=== PATIENT | female | born 1995 | race Two or more races ===

== ENCOUNTER 2018-08-25 05:23 | Inpatient (IN) | payer SELFPAY ==
[~2018-08-25] VITALS: Ht 157.5 cm; Wt 91.2 kg
[~2018-08-25 05:23] MED LIST: ACET-704 PO; IBUP-1060 PO; LABE100T5 PO
[2018-08-25] MEDS: IV RINGERS,LACTATED 1000ML 1,000 ML IV SCH ×2 (06:03→09:50)
[2018-08-25 06:15] VITALS: BP 150/80
[2018-08-25] MEDS ORDERED: LIDOCAINE 1% PF 30 ML VIAL. INJ PRN (06:15)
[2018-08-25] MEDS ORDERED: ACETAMINOPHEN 325 MG TABLET. PO PRN ×2 (06:15→13:15)
[2018-08-25] MEDS ORDERED: IV RINGERS,LACTATED 1000ML 1,000 ML IV SCH (06:15)
[2018-08-25] MEDS ORDERED: fentaNYL PF VIAL 100 MCG/2 ML VIAL IV PRN ×3 (06:15)
[2018-08-25] MEDS ORDERED: 0.9 % SODIUM CHLORIDE 10 ML DISP.SYRIN. IV PRN ×2 (06:15→13:15)
[2018-08-25] MEDS ORDERED: ONDANSETRON PF 4 MG/2 ML VIAL. IV PRN (06:15)
[2018-08-25] MEDS ORDERED: IBUPROFEN 400 MG TABLET. PO PRN (06:15)
[2018-08-25] MEDS ORDERED: NALBUPHINE 10 MG/ML AMPUL. IV PRN ×2 (06:15)
[2018-08-25] MEDS ORDERED: BUTORPHANOL 2 MG/ML VIAL. IV PRN ×2 (06:15)
[2018-08-25] MEDS ORDERED: TERBUTALINE 1 MG/ML VIAL. SQ PRN (06:15)
[2018-08-25] MEDS ORDERED: MAG HYDROX/ALUMINUM HYD/SIMETH 30 ML ORAL.SUSP PO PRN ×2 (06:15→13:15)
[2018-08-25] MEDS ORDERED: OXYTOCIN 30 UNIT/500 ML PREMIX 500 ML IV PRN ×3 (06:15→14:00)
[2018-08-25 06:20] LABS: BASO % 1 % (0-3); EOS % 1 % (0-3); HEMATOCRIT 34.4 % (36.0-47.0); HEMOGLOBIN 11.3 g/dL (12.0-15.5); LYMPH % 28 % (24-48); MEAN CORPUSCULAR HEMOGLOBIN 24 pg (25-35); MEAN CORPUSCULAR HGB CONC 33 g/dL (31-37); MEAN CORPUSCULAR VOLUME 75 fL (79-100); MONO # 0.5 x10^3/uL (0.0-1.1); MONO % 6 % (0-9); NEUT # 4.8 x10^3uL (1.8-7.7); NEUT % 65 % (31-73); PLATELET COUNT 243 x10^3/uL (140-400); RED BLOOD COUNT 4.61 x10^6/uL (3.50-5.40); RED CELL DISTRIBUTION WIDTH 15.1 % (11.5-14.5); WHITE BLOOD COUNT 7.4 x10^3/uL (4.0-11.0)
[2018-08-25] MEDS ORDERED: AMPICILLIN SODIUM 2 GM in IV NORMAL SALINE 100ML 100 ML IV ONE (06:30)
--- NOTE | 2018-08-25 08:24 | PDOC1 ---
OB - History Hx of Present Care: Good Care Ultrasounds: Normal mid trimester US Obstetrical Complications: None Medical Complications: None Past Family/Social History * Past Medical, Surgical, Family and Obstetric Histories reviewed from chart. Rubella: Immune RPR/VDRL: Negative GBS Status: Negative HBsAG: Negative OB - Chief Complaint & HPI Date of Admission: Date of Admission: August 25, 2018 at 05:23 Chief Complaint/History : 2 Para: 1 EGA: 39 Reason for admission: active labor, rupture of membranes Admission Nurse Assessment Rev: Yes OB - Admission Exam Physical Exam Vitals: VS - Last 72 Hours, by Label Date Time Temp Pulse Resp B/P (MAP) Pulse Ox O2 Delivery O2 Flow Rate FiO2 08/25/18 06:15 98.5 87 20 150/80 (103) Room Air 98.5 HEENT: Normal Heart: Regular Rate Lungs: Clear, Equal Abdomen: Gravid, Non tender, Soft Extremities: Edema Reflexes: Normal Cervical Dilatation: 3cm Effacement: 75% Station: -3 Membranes: Ruptured Amniotic Fluid: Clear Heart Rate: Normal Accelerations: Accelerations Present Decelerations: No decelerations Alf Variability: Moderate Contractions on Admission: 6-10 Minutes Apart Text A: 39 wks IUP SROM P: Admit labor management. GIA MAHER Jr, MD August 25, 2018 08:24
[2018-08-25] MEDS ORDERED: AMPICILLIN SODIUM 1 GM in IV NORMAL SALINE 50ML 50 ML IV SCH (10:30)
--- NOTE | 2018-08-25 13:14 | PDOC ---
VAGINAL DELIVERY DATE DATE: 08/25/18 TIME: 13:13 : 2 Para: 2 EGA: 39 VAGINAL DELIVERY: VTX VACCUM ASSISTED: No PLACENTA: Spontaneous 8/9 SEX: Male WEIGHT Weight [ pending] Nuchal Cord: No Amniotic Fluid: Clear PAIN: Natural EPISIOTOMY: No EXTENSION: No EBL 300 ml COMPLICATIONS none CONDITION pt. stable Signs of Intrauterine Infectio: None Shoulder Dystocia: No GIA MAHER Jr, MD August 25, 2018 13:14
[2018-08-25] MEDS ORDERED: BENZOCAINE 20% TOPICAL AEROSOL SPRAY 57GM CAN. TP PRN (13:15)
[2018-08-25] MEDS ORDERED: oxyCODONE/APAP 5/325 1 TAB TABLET PO PRN (13:15)
[2018-08-25] MEDS ORDERED: PHENYLEPH/MINERAL OIL/PETROLAT RECTAL OINTMENT 28GM TUBE. RC PRN (13:15)
[2018-08-25] MEDS ORDERED: diphenhydrAMINE HCL 25 MG CAPSULE PO PRN (13:15)
[2018-08-25] MEDS ORDERED: SIMETHICONE 80 MG TAB.CHEW PO PRN (13:15)
[2018-08-25] MEDS ORDERED: ZOLPIDEM 5 MG TABLET. PO PRN (13:15)
[2018-08-25] MEDS ORDERED: DOCUSATE SODIUM 100 MG CAPSULE. PO PRN (13:15)
[2018-08-25] MEDS ORDERED: HYDROCORTISONE 1% TOPICAL OINTMENT 30GM TUBE. TP PRN (13:15)
[2018-08-25] MEDS ORDERED: MAGNESIUM HYDROXIDE 2,400 MG/30 ML ORAL.SUSP. PO PRN (13:15)
[2018-08-25] MEDS ORDERED: MMR per PROTOCOL. MC PRN (13:15)
[2018-08-25] MEDS: IBUPROFEN 400 MG TABLET. PO PRN (13:52)
[2018-08-25 23:13] VITALS: BP 128/80
[2018-08-26 04:18] LABS: BASO % 0 % (0-3); EOS # 0.1 x10^3/uL (0.0-0.7); EOS % 1 % (0-3); HEMATOCRIT 30.3 % (36.0-47.0); HEMOGLOBIN 9.6 g/dL (12.0-15.5); LYMPH # 2.3 x10^3/uL (1.0-4.8); LYMPH % 22 % (24-48); MEAN CORPUSCULAR HEMOGLOBIN 24 pg (25-35); MEAN CORPUSCULAR HGB CONC 32 g/dL (31-37); MEAN CORPUSCULAR VOLUME 76 fL (79-100); MONO # 0.6 x10^3/uL (0.0-1.1); MONO % 6 % (0-9); NEUT # 7.4 x10^3uL (1.8-7.7); NEUT % 71 % (31-73); PLATELET COUNT 216 x10^3/uL (140-400); RED BLOOD COUNT 4.01 x10^6/uL (3.50-5.40); RED CELL DISTRIBUTION WIDTH 14.8 % (11.5-14.5); WHITE BLOOD COUNT 10.4 x10^3/uL (4.0-11.0)
[2018-08-26 06:16] VITALS: BP 122/86
[2018-08-26] MEDS ORDERED: FERROUS SULFATE 325 MG TABLET. PO SCH (08:00)
[2018-08-26] MEDS ORDERED: DIPHTH,PERTUSS(ACELL),TET TOX 0.5 ML DISP.SYRIN. VAX IM ONE (09:00)
--- NOTE | 2018-08-26 09:45 | PDOC ---
OB Progress Note Date of Service 08/26/18 Time of Evaluation 0947 Notes Pt. feeling well. No complaints. Lab Laboratory Tests Test 08/25/18 06:00 08/26/18 04:00 White Blood Count 7.4 x10^3/uL (4.0-11.0) 10.4 x10^3/uL (4.0-11.0) Red Blood Count 4.61 x10^6/uL (3.50-5.40) 4.01 x10^6/uL (3.50-5.40) Hemoglobin 11.3 g/dL (12.0-15.5) 9.6 g/dL (12.0-15.5) Hematocrit 34.4 % (36.0-47.0) 30.3 % (36.0-47.0) Mean Corpuscular Volume 75 fL (79-100) 76 fL (79-100) Mean Corpuscular Hemoglobin 24 pg (25-35) 24 pg (25-35) Mean Corpuscular Hemoglobin Concent 33 g/dL (31-37) 32 g/dL (31-37) Red Cell Distribution Width 15.1 % (11.5-14.5) 14.8 % (11.5-14.5) Platelet Count 243 x10^3/uL (140-400) 216 x10^3/uL (140-400) Neutrophils (%) (Auto) 65 % (31-73) 71 % (31-73) Lymphocytes (%) (Auto) 28 % (24-48) 22 % (24-48) Monocytes (%) (Auto) 6 % (0-9) 6 % (0-9) Eosinophils (%) (Auto) 1 % (0-3) 1 % (0-3) Basophils (%) (Auto) 1 % (0-3) 0 % (0-3) Neutrophils # (Auto) 4.8 x10^3uL (1.8-7.7) 7.4 x10^3uL (1.8-7.7) Lymphocytes # (Auto) 2.0 x10^3/uL (1.0-4.8) 2.3 x10^3/uL (1.0-4.8) Monocytes # (Auto) 0.5 x10^3/uL (0.0-1.1) 0.6 x10^3/uL (0.0-1.1) Eosinophils # (Auto) 0.0 x10^3/uL (0.0-0.7) 0.1 x10^3/uL (0.0-0.7) Basophils # (Auto) 0.0 x10^3/uL (0.0-0.2) 0.0 x10^3/uL (0.0-0.2) Treponema pallidum Antibody Nonreactive (Nonreactive) Hepatitis B Surface Antigen Nonreactive (Nonreactive) Laboratory Tests Test 08/26/18 04:00 White Blood Count 10.4 x10^3/uL (4.0-11.0) Red Blood Count 4.01 x10^6/uL (3.50-5.40) Hemoglobin 9.6 g/dL (12.0-15.5) Hematocrit 30.3 % (36.0-47.0) Mean Corpuscular Volume 76 fL (79-100) Mean Corpuscular Hemoglobin 24 pg (25-35) Mean Corpuscular Hemoglobin Concent 32 g/dL (31-37) Red Cell Distribution Width 14.8 % (11.5-14.5) Platelet Count 216 x10^3/uL (140-400) Neutrophils (%) (Auto) 71 % (31-73) Lymphocytes (%) (Auto) 22 % (24-48) Monocytes (%) (Auto) 6 % (0-9) Eosinophils (%) (Auto) 1 % (0-3) Basophils (%) (Auto) 0 % (0-3) Neutrophils # (Auto) 7.4 x10^3uL (1.8-7.7) Lymphocytes # (Auto) 2.3 x10^3/uL (1.0-4.8) Monocytes # (Auto) 0.6 x10^3/uL (0.0-1.1) Eosinophils # (Auto) 0.1 x10^3/uL (0.0-0.7) Basophils # (Auto) 0.0 x10^3/uL (0.0-0.2) Medications Current Medications Ringer's Solution 1,000 ml @ 125 mls/hr Q8H IV Last administered on 08/25/18at 09:50; Start 08/25/18 at 05:30 Sodium Chloride (Normal Saline Flush) 3 ml QSHIFT PRN IV AFTER MEDS AND BLOOD DRAWS; Start 08/25/18 at 06:15 Ringer's Solution 1,000 ml @ 125 mls/hr Q8H IV ; Start 08/25/18 at 06:15; Stop 08/25/18 at 13:18; Status DC Nalbuphine HCl (Nubain) 5 mg PRN Q1HR PRN IV Mild to moderate labor pain; Start 08/25/18 at 06:15 Nalbuphine HCl (Nubain) 10 mg PRN Q1HR PRN IV Severe labor pain; Start 08/25/18 at 06:15 Butorphanol Tartrate (Stadol) 1 mg PRN Q1HR PRN IV mild to moderate labor pain; Start 08/25/18 at 06:15 Butorphanol Tartrate (Stadol) 2 mg PRN Q1HR PRN IV Severe labor pain; Start 08/25/18 at 06:15 Fentanyl Citrate (Fentanyl 2ml Vial) 50 mcg PRN Q20MIN PRN IV Labor pain; Start 08/25/18 at 06:15 Fentanyl Citrate (Fentanyl 2ml Vial) 75 mcg PRN Q20MIN PRN IV Labor pain; Start 08/25/18 at 06:15 Fentanyl Citrate (Fentanyl 2ml Vial) 100 mcg PRN Q20MIN PRN IV Labor pain Last administered on 08/25/18at 11:25; Start 08/25/18 at 06:15 Acetaminophen (Tylenol) 650 mg PRN Q6HRS PRN PO MILD PAIN / TEMP; Start 08/25/18 at 06:15; Stop 08/25/18 at 13:21; Status DC Ondansetron HCl (Zofran) 4 mg PRN Q4HRS PRN IV NAUSEA/VOMITING; Start 08/25/18 at 06:15 Al Hydroxide/Mg Hydroxide (Mylanta Plus Xs) 30 ml PRN Q4HRS PRN PO HEARTBURN / GAS; Start 08/25/18 at 06:15; Stop 08/25/18 at 13:28; Status DC Terbutaline Sulfate (Brethine) 0.25 mg 1X PRN PRN SQ SEE COMMENTS; Start 08/25/18 at 06:15; Stop 08/26/18 at 06:14; Status DC Lidocaine HCl (Xylocaine 1% Pf 30ml Vial) 30 ml 1X PRN PRN INJ SEE COMMENTS; Start 08/25/18 at 06:15; Stop 08/27/18 at 06:14 Ampicillin Sodium 2 gm/Sodium Chloride 100 ml @ 200 mls/hr 1X ONCE IV Last administered on 08/25/18at 06:21; Start 08/25/18 at 06:30; Stop 08/25/18 at 06:59; Status DC Ampicillin Sodium 1 gm/Sodium Chloride 50 ml @ 100 mls/hr Q4H IV Last administered on 08/25/18at 09:50; Start 08/25/18 at 10:30 Oxytocin/Sodium Chloride 500 ml @ 0 mls/hr CONT PRN IV SEE I/O RECORD Last administered on 08/25/18at 09:51; Start 08/25/18 at 06:15 Oxytocin/Sodium Chloride 500 ml @ 0 mls/hr CONT PRN PRN IV Post delivery bleeding; Start 08/25/18 at 06:15 Ibuprofen (Motrin) 800 mg PRN Q6HRS PRN PO PAIN; Start 08/25/18 at 06:15; Stop 08/25/18 at 13:28; Status DC Sodium Chloride (Normal Saline Flush) 10 ml QSHIFT PRN IV AFTER MEDS AND BLOOD DRAWS; Start 08/25/18 at 13:15 Oxytocin/Sodium Chloride 500 ml @ 62.5 mls/hr CONT PRN IV SEE I/O RECORD; Start 08/25/18 at 14:00; Stop 08/25/18 at 14:01; Status DC Acetaminophen (Tylenol) 650 mg PRN Q6HRS PRN PO MILD PAIN / TEMP; Start 08/25/18 at 13:15 Ibuprofen (Motrin) 800 mg PRN Q8HRS PRN PO INFLAMMATION/PAIN PREVENTION Last administered on 08/25/18at 13:52; Start 08/25/18 at 13:15 Docusate Sodium (Colace) 100 mg PRN BID PRN PO CONSTIPATION; Start 08/25/18 at 13:15 Magnesium Hydroxide (Milk Of Magnesia) 2,400 mg PRN DAILY PRN PO CONSTIPATION; Start 08/25/18 at 13:15 Al Hydroxide/Mg Hydroxide (Mylanta Plus Xs) 30 ml PRN Q4HRS PRN PO HEARTBURN / GAS; Start 08/25/18 at 13:15 Simethicone (Gas-X) 80 mg PRN AFTMEALHC PRN PO GAS / BLOATING; Start 08/25/18 at 13:15 Diphenhydramine HCl (Benadryl) 25 mg PRN Q6HRS PRN PO ITCHING; Start 08/25/18 at 13:15 Benzocaine (Americaine) 1 spray PRN QID PRN TP TOPICAL PAIN; Start 08/25/18 at 13:15 Phenyleph/Shark Oil/Min Oil/Petrol (Preparation H) 1 yeni PRN QID PRN RC RECTAL PAIN; Start 08/25/18 at 13:15 Hydrocortisone (Cortaid) 1 yeni PRN QID PRN TP PERINEAL PAIN; Start 08/25/18 at 13:15 Ferrous Sulfate (Feosol) 325 mg BIDWMEALS PO ; Start 08/26/18 at 08:00; Stop 08/26/18 at 08:00; Status DC Zolpidem Tartrate (Ambien) 5 mg PRN QHS PRN PO INSOMNIA, MAY REPEAT X1; Start 08/25/18 at 13:15 Info (Do NOT chart on this placeholder) 1 ea 1X PRN PRN MC SEE COMMENTS; Start 08/25/18 at 13:15 Info (Do NOT chart on this placeholder) 1 ea 1X PRN PRN MC SEE COMMENTS; Start 08/25/18 at 13:15 Oxycodone/ Acetaminophen (Percocet 5/325) 2 tab PRN Q4HRS PRN PO MODERATE PAIN, SEVERE PAIN; Start 08/25/18 at 13:15 Diphtheria/ Tetanus/Acell Pertussis (Boostrix) 0.5 ml ONCE ONCE VAX IM ; Start 08/26/18 at 09:00; Stop 08/26/18 at 09:01; Status DC Active Scripts Active Tylenol With Codeine #3 Tablet (Acetaminophen/Codeine Phosphate) 1 Each Tablet 1 Each PO Q4H PRN Ibuprofen 800 Mg Tablet 800 Mg PO Q6H PRN Reported Labetalol Hcl 100 Mg Tablet 100 Tab PO BID Exam Abd: soft, non tender, fundus firm Assessment PPD#1 s/p Plan of Care: Continue current Tx, Mgmt GIA MAHER Jr, MD August 26, 2018 09:45
[2018-08-26] MEDS: IBUPROFEN 400 MG TABLET. PO PRN (10:10)
[2018-08-26 11:20] VITALS: BP 127/88
[2018-08-26 18:00] VITALS: BP 116/78
[2018-08-26 22:48] VITALS: BP 126/84
[2018-08-27 06:17] VITALS: BP 122/85
[2018-08-27 11:10] VITALS: BP 114/75
[2018-08-27 15:10] VITALS: BP 121/81
== END 2018-08-27 18:44 | disposition home or self-care (01) | DRG 807 ==
LOC: OBSVTOIN 05:23 → 3 SO LND 05:23 → 3 NORTH 16:34
PROVIDERS: ADMIT Specialist; ATTEND Specialist
PROC: 10E0XZZ Delivery of Products of Conception, External Approach (ICD-10-PCS; principal; 2018-08-25)
DX: O80 Encounter for full-term uncomplicated delivery (principal); Z37.0 Single live birth; Z3A.39 39 weeks gestation of pregnancy
CPT/HCPCS: 36415; 85025; 86592; 86850; 86900; 86901; 87340; 90471; 90715; J0290; J2590; J3010; J7120